=== PATIENT | male | born 1970 | race Caucasian/White ===

== ENCOUNTER 2020-11-15 14:00 | Emergency (ER) | payer OTHER ==
[~2020-11-15] VITALS: Ht 180.3 cm; Wt 68.0 kg
[2020-11-15 14:00] VITALS: BP 154/112
--- NOTE | 2020-11-15 14:05 | NUR ---
Patient to bed 3 by EMS at this time.
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
[2020-11-15] MEDS ORDERED: HYDROcodone/APAP 5/325 MG 1 TAB TAB PO ONE (14:20)
[2020-11-15] MEDS ORDERED: METH750T5 PO (15:27)
[2020-11-15] MEDS ORDERED: NAPR-54 PO (15:27)
[2020-11-15 15:48] VITALS: BP 148/97
--- NOTE | 2020-11-15 15:48 | NUR ---
Patient discharged with v/s stable. Written and verbal after care instructions given and explained. Patient alert, oriented and verbalized understanding of instructions. Ambulatory with steady gait. All questions addressed prior to discharge. ID band removed. Patient advised to follow up with PMD. Rx of ROBAXIN, NAPROXEN given. Patient educated on indication of medication including possible reaction and side effects. Opportunity to ask questions provided and answered.
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
--- NOTE | 2020-11-15 15:59 | NUR ---
PT REFUSING TO LEAVE. SECURITY CALLED.
--- NOTE | 2020-11-15 16:00 | NUR ---
SECURITY ESCORTED PT OFF PROPERTY.
== END 2020-11-15 15:48 | disposition home or self-care (01) ==
LOC: MED 14:00
DX: S06.0X9A Concussion with loss of consciousness of unspecified duration, initial encounter (principal); V98.8XXA Other specified transport accidents, initial encounter; Y93.89 Activity, other specified; Y92.89 Other specified places as the place of occurrence of the external cause; Y99.8 Other external cause status
CPT/HCPCS: 70450; 99284